=== PATIENT | female | born 1990 ===

== ENCOUNTER 2022-01-20 10:11 | Outpatient (CLI) | payer OTHER | END 2022-01-20 12:45 | disposition home or self-care (01) | LOC: PRENATAL 10:11 | PROVIDERS: ATTEND Obstetrics & Gynecology Maternal & Fetal Medicine | DX: O35.0XX0 Maternal care for (suspected) central nervous system malformation in fetus, not applicable or unspecified (principal); O35.3XX0 Maternal care for (suspected) damage to fetus from viral disease in mother, not applicable or unspecified; O28.1 Abnormal biochemical finding on antenatal screening of mother; Z3A.21 21 weeks gestation of pregnancy ==

== ENCOUNTER 2022-04-10 08:07 | Outpatient (CLI) | payer OTHER | END 2022-04-10 09:15 | disposition home or self-care (01) | LOC: PRENATAL 08:07 | PROVIDERS: ATTEND Obstetrics & Gynecology Maternal & Fetal Medicine | DX: O26.849 Uterine size-date discrepancy, unspecified trimester (principal); O36.8199 Decreased fetal movements, unspecified trimester, other fetus; O28.1 Abnormal biochemical finding on antenatal screening of mother; Z3A.32 32 weeks gestation of pregnancy ==

== ENCOUNTER 2022-05-09 11:52 | Inpatient (IN) | payer OTHER ==
[~2022-05-09] VITALS: Ht 157.5 cm; Wt 2.7 kg
[2022-05-13] MEDS ORDERED: IBU800 MG PO (15:58)
[2022-05-13] MEDS ORDERED: SIMETHICONE80 MG PO (15:58)
[2022-05-13] MEDS ORDERED: PERCOCET 5-3251 EACH PO (15:58)
[2022-05-13] MEDS ORDERED: COLACE100 MG PO (15:58)
== END 2022-05-13 18:48 | DRG 786 ==
LOC: LDR 11:52 → OB/GYN 05-11 10:56
PROVIDERS: ADMIT Obstetrics & Gynecology; ATTEND Obstetrics & Gynecology
PROC: 4A1HXCZ Monitoring of Products of Conception, Cardiac Rate, External Approach (ICD-10-PCS; 2022-05-09)
PROC: 10D00Z1 Extraction of Products of Conception, Low, Open Approach (ICD-10-PCS; principal; 2022-05-11 11:30)
DX: O36.8330 Maternal care for abnormalities of the fetal heart rate or rhythm, third trimester, not applicable or unspecified (principal); O60.14X0 Preterm labor third trimester with preterm delivery third trimester, not applicable or unspecified; Z3A.36 36 weeks gestation of pregnancy; Z37.0 Single live birth; Z20.822 Contact with and (suspected) exposure to COVID-19